=== PATIENT | female | born 1995 ===

== ENCOUNTER 2024-02-09 09:15 | Day surgery (SDC) | payer BC ==
[~2024-02-09 09:15] MED LIST: Lactated Ringers 1,000 ML IV SCH; Sodium Chloride 0.9% 10 ML Syringe FLUSH PRN; Sodium Chloride 0.9% 10 ML Syringe FLUSH SCH
[2024-02-09] MEDS: Lactated Ringers 1,000 ML IV SCH (09:45)
[2024-02-09] MEDS ORDERED: dexmedeTOMIDine HCl 200 MCG/2 ML SDV ONE (09:49)
[2024-02-09] MEDS ORDERED: Propofol 200 MG/20 ML SDV ONE ×3 (10:26→10:57)
[2024-02-09] MEDS ORDERED: Midazolam 1 MG/ML 2 ML SDV ONE (10:45)
== END 2024-02-09 12:10 | disposition home or self-care (01) ==
LOC: JD.SDS 09:15
PROVIDERS: ATTEND Surgery
DX: K29.50 Unspecified chronic gastritis without bleeding (principal); K52.9 Noninfective gastroenteritis and colitis, unspecified; F41.1 Generalized anxiety disorder; R63.4 Abnormal weight loss; K92.0 Hematemesis; R68.81 Early satiety; Z87.891 Personal history of nicotine dependence; Z79.899 Other long term (current) drug therapy
CPT/HCPCS: 00813; 81025; J2250; J2704; J3490; J7120